=== PATIENT | male | born 1945 | race Caucasian/White ===

== ENCOUNTER 2017-05-19 00:57 | Day surgery (SDC) | payer MEDICARE, BC | END 2017-05-19 16:39 | disposition home or self-care (01) | LOC: WOUND 00:57 | PROC: 0HB8XZZ Excision of Buttock Skin, External Approach (ICD-10-PCS; principal; 2017-05-19) | PROC: 0HB8XZX Excision of Buttock Skin, External Approach, Diagnostic (ICD-10-PCS; principal; 2017-05-19) | DX: Z48.00 Encounter for change or removal of nonsurgical wound dressing (principal); L89.153 Pressure ulcer of sacral region, stage 3; G82.21 Paraplegia, complete; L85.9 Epidermal thickening, unspecified | CPT/HCPCS: 88305; G0463 ==

== ENCOUNTER 2017-05-26 14:09 | Day surgery (SDC) | payer MEDICARE, BC | END 2017-05-26 22:52 | disposition home or self-care (01) | LOC: WOUND 14:09 | DX: L89.313 Pressure ulcer of right buttock, stage 3 (principal); G82.21 Paraplegia, complete; E66.9 Obesity, unspecified | CPT/HCPCS: G0463 ==

== ENCOUNTER 2017-06-02 14:09 | Day surgery (SDC) | payer MEDICARE, BC | END 2017-06-02 22:41 | disposition home or self-care (01) | LOC: WOUND 14:09 | DX: Z48.00 Encounter for change or removal of nonsurgical wound dressing (principal); L89.313 Pressure ulcer of right buttock, stage 3; G82.21 Paraplegia, complete ==

== ENCOUNTER 2017-06-16 00:15 | Day surgery (SDC) | payer MEDICARE, BC | END 2017-06-16 22:37 | disposition home or self-care (01) | LOC: WOUND 00:15 | DX: L89.153 Pressure ulcer of sacral region, stage 3 (principal); L89.313 Pressure ulcer of right buttock, stage 3; G82.21 Paraplegia, complete ==

== ENCOUNTER 2017-06-30 14:04 | Day surgery (SDC) | payer MEDICARE, BC | END 2017-06-30 23:14 | disposition home or self-care (01) | LOC: WOUND 14:04 | DX: Z48.00 Encounter for change or removal of nonsurgical wound dressing (principal); L89.313 Pressure ulcer of right buttock, stage 3; G82.21 Paraplegia, complete | CPT/HCPCS: G0463 ==

== ENCOUNTER 2017-07-14 14:15 | Day surgery (SDC) | payer MEDICARE, BC | END 2017-07-14 23:10 | disposition home or self-care (01) | LOC: WOUND 14:15 | DX: L89.152 Pressure ulcer of sacral region, stage 2 (principal); L89.313 Pressure ulcer of right buttock, stage 3; G82.21 Paraplegia, complete | CPT/HCPCS: G0463 ==

== ENCOUNTER 2017-08-11 12:30 | Day surgery (SDC) | payer MEDICARE, BC | END 2017-08-11 15:00 | disposition home or self-care (01) | LOC: WOUND 12:30 | DX: L89.153 Pressure ulcer of sacral region, stage 3 (principal); L89.214 Pressure ulcer of right hip, stage 4 | CPT/HCPCS: G0463 ==

== ENCOUNTER 2017-09-09 15:14 | Day surgery (SDC) | payer MEDICARE, BC | END 2017-09-09 17:04 | disposition home or self-care (01) | LOC: WOUND 15:14 | DX: L89.313 Pressure ulcer of right buttock, stage 3 (principal); G82.21 Paraplegia, complete; L30.9 Dermatitis, unspecified; Z99.3 Dependence on wheelchair; L84 Corns and callosities | CPT/HCPCS: G0463 ==

== ENCOUNTER 2017-10-05 00:22 | Day surgery (SDC) | payer MEDICARE, BC ==
[2017-10-05] MEDS ORDERED: ATEN50 PO (07:22)
[2017-10-05] MEDS ORDERED: ASPI81CH PO (07:22)
[2017-10-05] MEDS ORDERED: AMLO10 PO (07:22)
[2017-10-05] MEDS ORDERED: CEFA250SU PO (07:23)
[2017-10-05] MEDS ORDERED: ALLO300 PO (07:23)
[2017-10-05] MEDS ORDERED: BUME2 PO (07:23)
[2017-10-05] MEDS ORDERED: POTA10T PO (07:24)
== END 2017-10-05 14:33 | disposition home or self-care (01) ==
LOC: ATC 00:22
DX: L89.312 Pressure ulcer of right buttock, stage 2 (principal); M62.830 Muscle spasm of back
CPT/HCPCS: 99212

== ENCOUNTER 2017-11-07 12:05 | Day surgery (SDC) | payer MEDICARE, BC ==
[~2017-11-07 12:05] MED LIST: ALLO300 PO; AMLO10 PO; ASPI81CH PO; ATEN50 PO; BUME2 PO; CEFA250SU PO; POTA10T PO
== END 2017-11-07 22:44 | disposition home or self-care (01) ==
LOC: WOUND 12:05
DX: L89.313 Pressure ulcer of right buttock, stage 3 (principal); G82.21 Paraplegia, complete
CPT/HCPCS: G0463

== ENCOUNTER 2017-11-14 12:30 | Day surgery (SDC) | payer MEDICARE, BC | END 2017-11-14 22:41 | disposition home or self-care (01) | LOC: WOUND 12:30 | DX: Z48.00 Encounter for change or removal of nonsurgical wound dressing (principal); L89.313 Pressure ulcer of right buttock, stage 3; S31.809S Unspecified open wound of unspecified buttock, sequela; G82.21 Paraplegia, complete | CPT/HCPCS: G0463 ==

== ENCOUNTER 2017-11-21 14:25 | Day surgery (SDC) | payer MEDICARE, BC | END 2017-11-21 15:55 | disposition home or self-care (01) | LOC: WOUND 14:25 | DX: L89.313 Pressure ulcer of right buttock, stage 3 (principal); G82.21 Paraplegia, complete; L30.9 Dermatitis, unspecified; S30.810A Abrasion of lower back and pelvis, initial encounter ==

== ENCOUNTER 2017-11-28 08:16 | Day surgery (SDC) | payer MEDICARE, BC | END 2017-11-28 22:50 | disposition home or self-care (01) | LOC: WOUND 08:16 | DX: L89.313 Pressure ulcer of right buttock, stage 3 (principal); G82.21 Paraplegia, complete; Z68.37 Body mass index [BMI] 37.0-37.9, adult | CPT/HCPCS: G0463 ==

== ENCOUNTER 2017-12-29 00:16 | Day surgery (SDC) | payer MEDICARE, BC | END 2017-12-29 22:44 | disposition home or self-care (01) | LOC: WOUND 00:16 | PROC: 0HB6XZZ Excision of Back Skin, External Approach (ICD-10-PCS; principal; 2017-12-29) | DX: L89.153 Pressure ulcer of sacral region, stage 3 (principal); G82.21 Paraplegia, complete ==

== ENCOUNTER 2018-03-09 13:15 | Day surgery (SDC) | payer MEDICARE, BC | END 2018-03-09 22:45 | disposition home or self-care (01) | LOC: WOUND 13:15 | DX: L89.313 Pressure ulcer of right buttock, stage 3 (principal); S31.809S Unspecified open wound of unspecified buttock, sequela; G82.21 Paraplegia, complete; Z68.37 Body mass index [BMI] 37.0-37.9, adult ==

== ENCOUNTER 2018-04-11 07:12 | Day surgery (SDC) | payer MEDICARE, BC ==
[~2018-04-11] VITALS: Ht 190.5 cm; Wt 136.1 kg
--- NOTE | 2018-04-11 08:02 | NUR ---
PT INTO SDS VIA WHEELCHAIR. PT IS PARAPLEGIC-UTILIZED CEILING LIFT TO TRANSFER PT FROM WHEELCHAIR TO RNEY WITHOUT DIFFICULTY. Patient states colon prep results clear. History, Chart, Medications and Allergies reviewed before start of procedure.Lungs clear T/O to Auscultation. Patient confirms NPO status and agrees with scheduled surgery. Patient States Post-Procedure ride home has been arranged.
--- NOTE | 2018-04-11 08:46 | NUR ---
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
--- NOTE | 2018-04-11 09:02 | NUR ---
PT RETURNED TO SPOT 9 IN DAY SURGERY- PREP NO ADEQUATE. PT TO RECEIVE ENEMAS PER ORDER AND WILL ATTEMPT PROCEDURE AGAIN LATER THIS AM.
--- NOTE | 2018-04-11 10:30 | NUR ---
PT COCCYX AND BUTTOCKS NOTED TO BE EXCORIATED. OLD SACRAL WOUND NOTED-PT CHRISTOPHER STATES THAT PT GOES TO THE WOUND CARE CLINIC ONCE A MONTH. PT GIVEN 1500 CC TAP WATER ENEMA, BUT HE WAS UNABLE TO RETAIN ANY OF THE FLUID. DR. MONDRAGON NOTIFIED-MAXX BRENNAN RECTAL TUBE PLACED AND ADDITIONAL 2000 CC TAP WATER IRRIGATED. THE STOOL IN THE FECAL COLLECTION BAG IS CLEAR YELLOW. PARTIAL BATH AND COMPLETE LINEN CHANGE COMPLETED X 2. CALAZIME APPLIED TO EXCORIATED SKIN TO DIMPLE AREA.
--- NOTE | 2018-04-11 11:58 | NUR ---
04/11/18 1158 Ness Peñaloza History, Chart, Medications and Allergies reviewed before start of procedure. 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 SECOND ATTEMPT TODAY AFTER FIRST PROCEDURE ABORTED DUE TO INABILITY TO VISUALIZE COLON R/T POOR PREP. EMEMAS ADMINISTERED UNTIL STOOL CLEAR BY PREOP RN
--- NOTE | 2018-04-11 13:05 | NUR ---
Discharge instructions reviewed with patient. Patient verbalizes understanding. Copy given to patient to take home. PATEINT TO FOLLOW UP WITH DR. MONDRAGON R/T OPTIONS AVAILABLE FOR REPEAT SCOPE PT NOT CLEAR FOR PROCEDURE. PT OUT IN HOME WHEELCHAIR WITH
== END 2018-04-11 22:37 | disposition home or self-care (01) ==
LOC: ORSCMMR 07:12 → ORD 08:45 → ORSCMMR 08:45
PROVIDERS: Internal Medicine Gastroenterology
PROC: 0DJD8ZZ Inspection of Lower Intestinal Tract, Via Natural or Artificial Opening Endoscopic (ICD-10-PCS; principal; 2018-04-11 08:45)
DX: Z12.11 Encounter for screening for malignant neoplasm of colon (principal); Z86.010 Personal history of colon polyps; G82.20 Paraplegia, unspecified; L03.317 Cellulitis of buttock; I10 Essential (primary) hypertension; E66.01 Morbid (severe) obesity due to excess calories; Z68.39 Body mass index [BMI] 39.0-39.9, adult; Z79.899 Other long term (current) drug therapy
CPT/HCPCS: J2250; J7120

== ENCOUNTER 2018-05-26 08:07 | Day surgery (SDC) | payer MEDICARE, BC | END 2018-05-26 23:17 | disposition home or self-care (01) | LOC: WOUND 08:07 | DX: L89.153 Pressure ulcer of sacral region, stage 3 (principal); L89.322 Pressure ulcer of left buttock, stage 2; L89.312 Pressure ulcer of right buttock, stage 2; L89.892 Pressure ulcer of other site, stage 2; I11.0 Hypertensive heart disease with heart failure; I50.9 Heart failure, unspecified; G82.21 Paraplegia, complete; G47.30 Sleep apnea, unspecified; M10.9 Gout, unspecified | CPT/HCPCS: G0463 ==

== ENCOUNTER 2018-06-08 10:48 | Day surgery (SDC) | payer MEDICARE, BC | END 2018-06-08 23:11 | disposition home or self-care (01) | LOC: WOUND 10:48 | DX: L89.312 Pressure ulcer of right buttock, stage 2 (principal); L89.322 Pressure ulcer of left buttock, stage 2; L89.153 Pressure ulcer of sacral region, stage 3; G82.21 Paraplegia, complete; G47.30 Sleep apnea, unspecified; I11.0 Hypertensive heart disease with heart failure; I50.9 Heart failure, unspecified; I73.9 Peripheral vascular disease, unspecified; M10.9 Gout, unspecified | CPT/HCPCS: G0463 ==

== ENCOUNTER 2018-07-06 00:16 | Day surgery (SDC) | payer MEDICARE, BC | END 2018-07-06 22:42 | disposition home or self-care (01) | LOC: WOUND 00:16 | DX: L89.153 Pressure ulcer of sacral region, stage 3 (principal); L89.312 Pressure ulcer of right buttock, stage 2; L89.322 Pressure ulcer of left buttock, stage 2; G82.21 Paraplegia, complete; I11.0 Hypertensive heart disease with heart failure; I50.9 Heart failure, unspecified; G47.30 Sleep apnea, unspecified | CPT/HCPCS: G0463 ==

== ENCOUNTER 2018-08-10 11:00 | Day surgery (SDC) | payer MEDICARE, BC | END 2018-08-10 23:21 | disposition home or self-care (01) | LOC: WOUND 11:00 | DX: L89.153 Pressure ulcer of sacral region, stage 3 (principal); L89.312 Pressure ulcer of right buttock, stage 2; L89.322 Pressure ulcer of left buttock, stage 2; G82.21 Paraplegia, complete; I11.0 Hypertensive heart disease with heart failure; I50.9 Heart failure, unspecified; M10.9 Gout, unspecified; M86.9 Osteomyelitis, unspecified; G82.20 Paraplegia, unspecified ==

== ENCOUNTER 2018-09-14 00:22 | Day surgery (SDC) | payer MEDICARE, BC | END 2018-09-14 22:49 | disposition home or self-care (01) | LOC: WOUND 00:22 | DX: L89.153 Pressure ulcer of sacral region, stage 3 (principal); L89.312 Pressure ulcer of right buttock, stage 2; L89.322 Pressure ulcer of left buttock, stage 2; L89.892 Pressure ulcer of other site, stage 2; I11.0 Hypertensive heart disease with heart failure; I50.9 Heart failure, unspecified; I73.9 Peripheral vascular disease, unspecified; G47.30 Sleep apnea, unspecified; G82.21 Paraplegia, complete | CPT/HCPCS: G0463 ==

== ENCOUNTER 2018-10-17 13:43 | Day surgery (SDC) | payer MEDICARE, BC | END 2018-10-17 22:47 | disposition home or self-care (01) | LOC: WOUND 13:43 | DX: L89.312 Pressure ulcer of right buttock, stage 2 (principal); L89.322 Pressure ulcer of left buttock, stage 2; G82.21 Paraplegia, complete | CPT/HCPCS: G0463 ==

== ENCOUNTER 2018-11-20 14:00 | Day surgery (SDC) | payer MEDICARE, BC | END 2018-11-20 23:06 | disposition home or self-care (01) | LOC: WOUND 14:00 | DX: L89.312 Pressure ulcer of right buttock, stage 2 (principal); L89.322 Pressure ulcer of left buttock, stage 2; G82.21 Paraplegia, complete; I11.0 Hypertensive heart disease with heart failure; I50.9 Heart failure, unspecified | CPT/HCPCS: 87070; 87075; 87205; G0463 ==

== ENCOUNTER 2018-11-30 00:16 | Day surgery (SDC) | payer MEDICARE, BC | END 2018-11-30 22:54 | disposition home or self-care (01) | LOC: WOUND 00:16 | DX: L89.313 Pressure ulcer of right buttock, stage 3 (principal); L89.323 Pressure ulcer of left buttock, stage 3; G82.21 Paraplegia, complete; Z99.3 Dependence on wheelchair | CPT/HCPCS: G0463 ==

== ENCOUNTER 2019-01-16 08:30 | Day surgery (SDC) | payer MEDICARE, BC | END 2019-01-16 22:41 | disposition home or self-care (01) | LOC: WOUND 08:30 | DX: L89.313 Pressure ulcer of right buttock, stage 3 (principal); L89.323 Pressure ulcer of left buttock, stage 3; G82.21 Paraplegia, complete; E66.9 Obesity, unspecified; M10.9 Gout, unspecified; I10 Essential (primary) hypertension; L03.90 Cellulitis, unspecified; Z88.1 Allergy status to other antibiotic agents; Z86.010 Personal history of colon polyps; Z68.38 Body mass index [BMI] 38.0-38.9, adult; Z79.82 Long term (current) use of aspirin; Z79.899 Other long term (current) drug therapy; R68.83 Chills (without fever) | CPT/HCPCS: 36415; 80053; 85025; G0463 ==

== ENCOUNTER 2019-03-14 00:36 | Day surgery (SDC) | payer MEDICARE, BC | END 2019-03-14 22:45 | disposition home or self-care (01) | LOC: WOUND 00:36 | DX: L89.313 Pressure ulcer of right buttock, stage 3 (principal); L89.323 Pressure ulcer of left buttock, stage 3; G82.21 Paraplegia, complete | CPT/HCPCS: G0463 ==

== ENCOUNTER → 2019-04-17 | Day surgery (SDC) | payer MEDICARE, BC | LOC: WOUND 11:11 | DX: L89.313 Pressure ulcer of right buttock, stage 3 (principal); L89.323 Pressure ulcer of left buttock, stage 3; G82.21 Paraplegia, complete | CPT/HCPCS: G0463 ==

== ENCOUNTER 2019-05-15 00:19 | Day surgery (SDC) | payer MEDICARE, BC | END 2019-05-15 22:48 | disposition home or self-care (01) | LOC: WOUND 00:19 | DX: L89.313 Pressure ulcer of right buttock, stage 3 (principal); L89.323 Pressure ulcer of left buttock, stage 3; G82.21 Paraplegia, complete; I10 Essential (primary) hypertension; I50.9 Heart failure, unspecified ==

== ENCOUNTER 2019-06-18 00:11 | Day surgery (SDC) | payer MEDICARE, BC | END 2019-06-18 22:38 | disposition home or self-care (01) | LOC: WOUND 00:11 | DX: L89.313 Pressure ulcer of right buttock, stage 3 (principal); L89.323 Pressure ulcer of left buttock, stage 3; G82.21 Paraplegia, complete ==

== ENCOUNTER 2019-07-12 00:13 | Day surgery (SDC) | payer MEDICARE, BC | END 2019-07-12 23:48 | disposition home or self-care (01) | LOC: WOUND 00:13 | DX: L89.313 Pressure ulcer of right buttock, stage 3 (principal); L89.323 Pressure ulcer of left buttock, stage 3; G82.21 Paraplegia, complete | CPT/HCPCS: G0463 ==

== ENCOUNTER 2019-12-20 00:43 | Day surgery (SDC) | payer MEDICARE, BC | END 2019-12-20 12:00 | disposition home or self-care (01) | LOC: WOUND 00:43 | DX: L89.313 Pressure ulcer of right buttock, stage 3 (principal); L89.323 Pressure ulcer of left buttock, stage 3; G82.21 Paraplegia, complete | CPT/HCPCS: G0463 ==

== ENCOUNTER 2020-03-19 00:45 | Day surgery (SDC) | payer MEDICARE, BC | END 2020-03-19 23:08 | disposition home or self-care (01) | LOC: WOUND 00:45 | DX: I96 Gangrene, not elsewhere classified (principal); L89.313 Pressure ulcer of right buttock, stage 3; L89.223 Pressure ulcer of left hip, stage 3; L89.322 Pressure ulcer of left buttock, stage 2; S31.31XD Laceration without foreign body of scrotum and testes, subsequent encounter; G47.30 Sleep apnea, unspecified; I11.0 Hypertensive heart disease with heart failure; I50.9 Heart failure, unspecified; M10.9 Gout, unspecified; M86.9 Osteomyelitis, unspecified; G82.21 Paraplegia, complete; Z79.82 Long term (current) use of aspirin; Z79.899 Other long term (current) drug therapy; Z88.1 Allergy status to other antibiotic agents; X58.XXXD Exposure to other specified factors, subsequent encounter | CPT/HCPCS: G0463 ==

== ENCOUNTER 2020-07-11 00:54 | Day surgery (SDC) | payer MEDICARE, BC | END 2020-07-11 23:05 | disposition home or self-care (01) | LOC: WOUND 00:54 | DX: L89.313 Pressure ulcer of right buttock, stage 3 (principal); L89.323 Pressure ulcer of left buttock, stage 3; G82.21 Paraplegia, complete; Z68.38 Body mass index [BMI] 38.0-38.9, adult; N39.46 Mixed incontinence; L24.89 Irritant contact dermatitis due to other agents; Z99.3 Dependence on wheelchair | CPT/HCPCS: A9270; G0463 ==

== ENCOUNTER 2020-07-18 00:46 | Day surgery (SDC) | payer MEDICARE, BC | END 2020-07-18 22:38 | disposition home or self-care (01) | LOC: WOUND 00:46 | DX: L89.313 Pressure ulcer of right buttock, stage 3 (principal); L89.323 Pressure ulcer of left buttock, stage 3; G82.21 Paraplegia, complete; Z68.38 Body mass index [BMI] 38.0-38.9, adult; N39.46 Mixed incontinence; L24.89 Irritant contact dermatitis due to other agents; Z99.3 Dependence on wheelchair | CPT/HCPCS: G0463 ==

== ENCOUNTER 2020-07-25 00:59 | Day surgery (SDC) | payer MEDICARE, BC | END 2020-07-25 23:09 | disposition home or self-care (01) | LOC: WOUND 00:59 | DX: L89.323 Pressure ulcer of left buttock, stage 3 (principal); L89.313 Pressure ulcer of right buttock, stage 3; L89.153 Pressure ulcer of sacral region, stage 3; G82.21 Paraplegia, complete; N39.46 Mixed incontinence; L24.89 Irritant contact dermatitis due to other agents; Z68.38 Body mass index [BMI] 38.0-38.9, adult; Z99.3 Dependence on wheelchair | CPT/HCPCS: G0463 ==

== ENCOUNTER 2020-08-08 04:21 | Day surgery (SDC) | payer MEDICARE, BC | END 2020-08-09 00:32 | disposition home or self-care (01) | LOC: WOUND 04:21 | DX: L89.313 Pressure ulcer of right buttock, stage 3 (principal); L89.323 Pressure ulcer of left buttock, stage 3; G82.21 Paraplegia, complete; N39.46 Mixed incontinence; L24.89 Irritant contact dermatitis due to other agents; Z68.38 Body mass index [BMI] 38.0-38.9, adult; Z99.3 Dependence on wheelchair | CPT/HCPCS: G0463 ==

== ENCOUNTER 2020-09-04 01:40 | Day surgery (SDC) | payer MEDICARE, BC | END 2020-09-04 23:36 | disposition home or self-care (01) | LOC: WOUND 01:40 | DX: L89.313 Pressure ulcer of right buttock, stage 3 (principal); L89.323 Pressure ulcer of left buttock, stage 3; S31.31XD Laceration without foreign body of scrotum and testes, subsequent encounter; G82.21 Paraplegia, complete; N39.46 Mixed incontinence; L24.89 Irritant contact dermatitis due to other agents; Z99.3 Dependence on wheelchair; Z88.1 Allergy status to other antibiotic agents | CPT/HCPCS: G0463 ==

== ENCOUNTER 2020-10-02 02:07 | Day surgery (SDC) | payer MEDICARE, BC | END 2020-10-02 23:00 | disposition home or self-care (01) | LOC: WOUND 02:07 | DX: L89.313 Pressure ulcer of right buttock, stage 3 (principal); L89.323 Pressure ulcer of left buttock, stage 3; L89.312 Pressure ulcer of right buttock, stage 2; L89.322 Pressure ulcer of left buttock, stage 2; G82.21 Paraplegia, complete; N39.46 Mixed incontinence; L24.89 Irritant contact dermatitis due to other agents; Z68.38 Body mass index [BMI] 38.0-38.9, adult; Z99.3 Dependence on wheelchair | CPT/HCPCS: G0463 ==

== ENCOUNTER 2020-11-06 01:49 | Day surgery (SDC) | payer MEDICARE, BC | END 2020-11-06 23:03 | disposition home or self-care (01) | LOC: WOUND 01:49 | DX: L89.313 Pressure ulcer of right buttock, stage 3 (principal); L89.323 Pressure ulcer of left buttock, stage 3; G82.21 Paraplegia, complete; N39.46 Mixed incontinence; L24.89 Irritant contact dermatitis due to other agents; Z99.3 Dependence on wheelchair; Z68.38 Body mass index [BMI] 38.0-38.9, adult ==

== ENCOUNTER → 2020-12-01 | Outpatient (CLI) | payer MEDICARE, BC | END | disposition home or self-care (01) | LOC: LAB SHORT 18:06 | DX: R82.998 Other abnormal findings in urine (principal) | CPT/HCPCS: 87077; 87086; 87186 ==

== ENCOUNTER 2020-12-02 01:10 | Day surgery (SDC) | payer MEDICARE, BC | END 2020-12-02 23:07 | disposition home or self-care (01) | LOC: WOUND 01:10 | DX: L89.323 Pressure ulcer of left buttock, stage 3 (principal); L89.313 Pressure ulcer of right buttock, stage 3; S31.31XA Laceration without foreign body of scrotum and testes, initial encounter; X58.XXXA Exposure to other specified factors, initial encounter; G82.21 Paraplegia, complete; Z68.38 Body mass index [BMI] 38.0-38.9, adult; N39.46 Mixed incontinence; L24.89 Irritant contact dermatitis due to other agents; Z99.3 Dependence on wheelchair; Z88.1 Allergy status to other antibiotic agents | CPT/HCPCS: G0463 ==

== ENCOUNTER 2021-01-28 02:02 | Day surgery (SDC) | payer MEDICARE, BC | END 2021-01-28 23:09 | disposition home or self-care (01) | LOC: WOUND 02:02 | DX: L89.323 Pressure ulcer of left buttock, stage 3 (principal); L89.312 Pressure ulcer of right buttock, stage 2; L89.890 Pressure ulcer of other site, unstageable; G82.21 Paraplegia, complete; N39.46 Mixed incontinence; L24.89 Irritant contact dermatitis due to other agents; Z99.3 Dependence on wheelchair; Z68.38 Body mass index [BMI] 38.0-38.9, adult | CPT/HCPCS: G0463 ==

== ENCOUNTER 2021-03-02 00:57 | Day surgery (SDC) | payer MEDICARE, BC | END 2021-03-02 23:18 | disposition home or self-care (01) | LOC: WOUND 00:57 | DX: L89.313 Pressure ulcer of right buttock, stage 3 (principal); L89.323 Pressure ulcer of left buttock, stage 3; G82.21 Paraplegia, complete; Z68.38 Body mass index [BMI] 38.0-38.9, adult; N39.46 Mixed incontinence; L24.89 Irritant contact dermatitis due to other agents; Z99.3 Dependence on wheelchair | CPT/HCPCS: A9270; G0463 ==

== ENCOUNTER 2021-04-17 03:01 | Day surgery (SDC) | payer MEDICARE, BC | END 2021-04-17 23:01 | disposition home or self-care (01) | LOC: WOUND 03:01 | DX: L89.313 Pressure ulcer of right buttock, stage 3 (principal); L89.323 Pressure ulcer of left buttock, stage 3; G82.21 Paraplegia, complete; N39.46 Mixed incontinence; L24.89 Irritant contact dermatitis due to other agents; Z99.3 Dependence on wheelchair; Z68.38 Body mass index [BMI] 38.0-38.9, adult | CPT/HCPCS: A9270; G0463 ==

== ENCOUNTER 2021-05-15 02:37 | Day surgery (SDC) | payer MEDICARE, BC | END 2021-05-15 23:16 | disposition home or self-care (01) | LOC: WOUND 02:37 | DX: L89.313 Pressure ulcer of right buttock, stage 3 (principal); L89.323 Pressure ulcer of left buttock, stage 3; G82.21 Paraplegia, complete; R32 Unspecified urinary incontinence; L24.89 Irritant contact dermatitis due to other agents; Z99.3 Dependence on wheelchair | CPT/HCPCS: A9270; G0463 ==

== ENCOUNTER 2021-06-12 03:00 | Day surgery (SDC) | payer MEDICARE, BC | END 2021-06-12 23:10 | disposition home or self-care (01) | LOC: WOUND 03:00 | DX: L89.323 Pressure ulcer of left buttock, stage 3 (principal); L89.314 Pressure ulcer of right buttock, stage 4; G89.21 Chronic pain due to trauma; Z68.38 Body mass index [BMI] 38.0-38.9, adult; N39.46 Mixed incontinence; L24.89 Irritant contact dermatitis due to other agents; Z99.3 Dependence on wheelchair | CPT/HCPCS: G0463 ==

== ENCOUNTER → 2021-06-19 | Outpatient (CLI) | payer MEDICARE, BC ==
[2021-06-19 14:34] LABS: Source, Urine Voided
[2021-06-19 16:07] LABS: Appearance, Urine Hazy (Clear); Bilirubin, Urine Neg (Neg); Blood, Urine 1+ (Neg); Color, Urine Yellow (P-Yellow); Glucose Qualitative, Urine Neg (Neg); Ketones, Urine Neg (Neg); Leukocyte Esterase, Urine 3+ (Neg); Nitrite, Urine Pos (Neg); Protein, Urine Neg (Neg); Urobilinogen, Urine NORM (Normal); pH, Urine 6.5 (5.0-8.0)
[2021-06-19 17:10] LABS: White Blood Cells, Urine 25-50 /hpf (0-5)
[2021-06-19 17:11] LABS: Bacteria Many /hpf; Mucus Light (0-Heavy); Squamous Epithelial Cells Rare /hpf (Few)
== END | disposition home or self-care (01) ==
LOC: LAB 14:33 → LAB SHORT 14:33 → LAB FUT 06-18 12:05
PROVIDERS: Urology
DX: N39.0 Urinary tract infection, site not specified (principal)
CPT/HCPCS: 81001; 87077; 87086; 87186

== ENCOUNTER 2021-07-10 01:53 | Day surgery (SDC) | payer MEDICARE, BC | END 2021-07-10 23:00 | disposition home or self-care (01) | LOC: WOUND 01:53 | DX: L89.314 Pressure ulcer of right buttock, stage 4 (principal); L89.323 Pressure ulcer of left buttock, stage 3; S31.809S Unspecified open wound of unspecified buttock, sequela; X58.XXXS Exposure to other specified factors, sequela; G82.21 Paraplegia, complete; N39.46 Mixed incontinence; L24.89 Irritant contact dermatitis due to other agents; Z99.3 Dependence on wheelchair; Z68.38 Body mass index [BMI] 38.0-38.9, adult | CPT/HCPCS: G0463 ==

== ENCOUNTER 2021-08-07 08:00 | Day surgery (SDC) | payer MEDICARE, BC | END 2021-08-07 23:59 | disposition home or self-care (01) | LOC: WOUND 08:00 | DX: L89.314 Pressure ulcer of right buttock, stage 4 (principal); L89.323 Pressure ulcer of left buttock, stage 3; S31.809S Unspecified open wound of unspecified buttock, sequela; X58.XXXS Exposure to other specified factors, sequela; G82.21 Paraplegia, complete; Z68.38 Body mass index [BMI] 38.0-38.9, adult; N39.46 Mixed incontinence; L24.89 Irritant contact dermatitis due to other agents; Z99.3 Dependence on wheelchair | CPT/HCPCS: G0463 ==

== ENCOUNTER 2021-09-09 03:41 | Day surgery (SDC) | payer MEDICARE, BC | END 2021-09-09 23:56 | LOC: WOUND 03:41 | DX: L89.314 Pressure ulcer of right buttock, stage 4 (principal); L89.323 Pressure ulcer of left buttock, stage 3; L89.893 Pressure ulcer of other site, stage 3; S31.809S Unspecified open wound of unspecified buttock, sequela; X58.XXXS Exposure to other specified factors, sequela; G82.21 Paraplegia, complete; N39.46 Mixed incontinence; L24.89 Irritant contact dermatitis due to other agents; Z99.3 Dependence on wheelchair; Z68.38 Body mass index [BMI] 38.0-38.9, adult | CPT/HCPCS: G0463 ==

== ENCOUNTER 2021-10-21 02:03 | Day surgery (SDC) | payer MEDICARE, BC | END 2021-10-21 23:25 | disposition home or self-care (01) | LOC: WOUND 02:03 | DX: L89.154 Pressure ulcer of sacral region, stage 4 (principal); L89.153 Pressure ulcer of sacral region, stage 3; L89.893 Pressure ulcer of other site, stage 3; G82.21 Paraplegia, complete; N39.46 Mixed incontinence; L24.89 Irritant contact dermatitis due to other agents; Z99.3 Dependence on wheelchair | CPT/HCPCS: A9270; G0463 ==

== ENCOUNTER 2022-01-04 02:14 | Day surgery (SDC) | payer MEDICARE, BC | END 2022-01-04 22:53 | disposition home or self-care (01) | LOC: WOUND 02:14 | DX: L89.314 Pressure ulcer of right buttock, stage 4 (principal); L89.323 Pressure ulcer of left buttock, stage 3; L89.893 Pressure ulcer of other site, stage 3; S31.809S Unspecified open wound of unspecified buttock, sequela; G82.21 Paraplegia, complete; N39.46 Mixed incontinence; L24.89 Irritant contact dermatitis due to other agents; N39.0 Urinary tract infection, site not specified; Z68.38 Body mass index [BMI] 38.0-38.9, adult; Z99.3 Dependence on wheelchair | CPT/HCPCS: G0463 ==

== ENCOUNTER 2022-02-08 01:45 | Day surgery (SDC) | payer MEDICARE, BC | END 2022-02-08 23:02 | disposition home or self-care (01) | LOC: WOUND 01:45 | DX: L89.314 Pressure ulcer of right buttock, stage 4 (principal); L89.323 Pressure ulcer of left buttock, stage 3; L89.893 Pressure ulcer of other site, stage 3; S31.809S Unspecified open wound of unspecified buttock, sequela; L24.89 Irritant contact dermatitis due to other agents; G82.21 Paraplegia, complete; N39.46 Mixed incontinence; Z68.38 Body mass index [BMI] 38.0-38.9, adult; Z99.3 Dependence on wheelchair | CPT/HCPCS: A9270; G0463 ==

== ENCOUNTER 2022-03-10 04:09 | Day surgery (SDC) | payer MEDICARE, BC | END 2022-03-10 23:05 | disposition home or self-care (01) | LOC: WOUND 04:09 | DX: L89.314 Pressure ulcer of right buttock, stage 4 (principal); L89.323 Pressure ulcer of left buttock, stage 3; S31.809A Unspecified open wound of unspecified buttock, initial encounter; L89.893 Pressure ulcer of other site, stage 3; G82.21 Paraplegia, complete; Z68.38 Body mass index [BMI] 38.0-38.9, adult; N39.46 Mixed incontinence; L24.89 Irritant contact dermatitis due to other agents; Z99.3 Dependence on wheelchair | CPT/HCPCS: G0463 ==

== ENCOUNTER 2022-04-07 00:40 | Day surgery (SDC) | payer MEDICARE, BC | END 2022-04-07 22:51 | disposition home or self-care (01) | LOC: WOUND 00:40 | DX: L89.314 Pressure ulcer of right buttock, stage 4 (principal); L89.323 Pressure ulcer of left buttock, stage 3; G82.21 Paraplegia, complete; N39.46 Mixed incontinence; L24.89 Irritant contact dermatitis due to other agents; Z99.3 Dependence on wheelchair ==

== ENCOUNTER → 2022-04-15 | Outpatient (CLI) | payer MEDICARE, BC ==
[2022-04-15 15:36] LABS: Appearance, Urine Hazy (Clear); Bilirubin, Urine Neg (Neg); Blood, Urine 2+ (Neg); Color, Urine Yellow (P-Yellow); Glucose Qualitative, Urine Neg (Neg); Ketones, Urine Neg (Neg); Leukocyte Esterase, Urine 3+ (Neg); Nitrite, Urine Pos (Neg); Protein, Urine 2+ (Neg); Specific Gravity, Urine 1.015 (1.003-1.022); Urobilinogen, Urine NORM (Normal); pH, Urine 6.5 (5.0-8.0)
[2022-04-15 15:51] LABS: White Blood Cells, Urine TNTC /hpf (0-5)
[2022-04-15 15:52] LABS: Bacteria Many /hpf; Squamous Epithelial Cells Not Seen /hpf (Few)
== END | disposition home or self-care (01) ==
LOC: LAB SHORT 11:55 → LAB 11:55 → LAB FUT 04-09 07:35
PROVIDERS: Urology
DX: N39.0 Urinary tract infection, site not specified (principal)
CPT/HCPCS: 81001; 87077; 87086; 87186

== ENCOUNTER 2022-05-12 01:56 | Day surgery (SDC) | payer MEDICARE, BC | END 2022-05-12 22:35 | disposition home or self-care (01) | LOC: WOUND 01:56 | DX: L89.314 Pressure ulcer of right buttock, stage 4 (principal); L89.323 Pressure ulcer of left buttock, stage 3; L89.893 Pressure ulcer of other site, stage 3; S31.809S Unspecified open wound of unspecified buttock, sequela; G82.21 Paraplegia, complete; N39.46 Mixed incontinence; L24.89 Irritant contact dermatitis due to other agents; Z99.3 Dependence on wheelchair; Z68.38 Body mass index [BMI] 38.0-38.9, adult | CPT/HCPCS: G0463 ==

== ENCOUNTER 2022-06-09 02:45 | Day surgery (SDC) | payer MEDICARE, BC | END 2022-06-09 22:41 | disposition home or self-care (01) | LOC: WOUND 02:45 | DX: L89.314 Pressure ulcer of right buttock, stage 4 (principal); N50.89 Other specified disorders of the male genital organs; L89.893 Pressure ulcer of other site, stage 3; L89.323 Pressure ulcer of left buttock, stage 3; S31.809S Unspecified open wound of unspecified buttock, sequela; G82.21 Paraplegia, complete; N39.46 Mixed incontinence; L24.89 Irritant contact dermatitis due to other agents; Z99.3 Dependence on wheelchair | CPT/HCPCS: G0463 ==

== ENCOUNTER 2022-07-07 05:35 | Day surgery (SDC) | payer MEDICARE, BC | END 2022-07-07 22:57 | disposition home or self-care (01) | LOC: WOUND 05:35 | DX: L89.314 Pressure ulcer of right buttock, stage 4 (principal); L89.323 Pressure ulcer of left buttock, stage 3; S31.809S Unspecified open wound of unspecified buttock, sequela; X58.XXXS Exposure to other specified factors, sequela; G82.21 Paraplegia, complete; Z68.38 Body mass index [BMI] 38.0-38.9, adult; N39.46 Mixed incontinence; L24.89 Irritant contact dermatitis due to other agents; Z99.3 Dependence on wheelchair | CPT/HCPCS: G0463 ==

== ENCOUNTER 2022-09-30 02:40 | Day surgery (SDC) | payer MEDICARE, BC | END 2022-09-30 23:35 | disposition home or self-care (01) | LOC: WOUND 02:40 | DX: L89.314 Pressure ulcer of right buttock, stage 4 (principal); L89.893 Pressure ulcer of other site, stage 3; L89.323 Pressure ulcer of left buttock, stage 3; S31.809S Unspecified open wound of unspecified buttock, sequela; X58.XXXS Exposure to other specified factors, sequela; G82.21 Paraplegia, complete; N39.46 Mixed incontinence; L24.89 Irritant contact dermatitis due to other agents; Z68.38 Body mass index [BMI] 38.0-38.9, adult; Z99.3 Dependence on wheelchair | CPT/HCPCS: G0463 ==

== ENCOUNTER 2022-10-28 03:42 | Day surgery (SDC) | payer MEDICARE, BC | END 2022-10-28 22:40 | disposition home or self-care (01) | LOC: WOUND 03:42 | DX: L89.314 Pressure ulcer of right buttock, stage 4 (principal); L89.893 Pressure ulcer of other site, stage 3; L89.323 Pressure ulcer of left buttock, stage 3; S31.809S Unspecified open wound of unspecified buttock, sequela; X58.XXXS Exposure to other specified factors, sequela; G82.21 Paraplegia, complete; N39.46 Mixed incontinence; L24.89 Irritant contact dermatitis due to other agents; Z99.3 Dependence on wheelchair; Z68.38 Body mass index [BMI] 38.0-38.9, adult; N39.0 Urinary tract infection, site not specified | CPT/HCPCS: 81001; 87077; 87086; 87186; A9270; G0463 ==

== ENCOUNTER → 2022-10-28 | Outpatient (CLI) | payer MEDICARE, BC ==
[2022-10-28 17:28] LABS: Appearance, Urine Cloudy (Clear); Bilirubin, Urine Neg (Neg); Blood, Urine 2+ (Neg); Color, Urine Yellow (P-Yellow); Glucose Qualitative, Urine Neg (Neg); Ketones, Urine Neg (Neg); Leukocyte Esterase, Urine 3+ (Neg); Nitrite, Urine Pos (Neg); Protein, Urine 1+ (Neg); Specific Gravity, Urine 1.015 (1.003-1.022); Urobilinogen, Urine NORM (Normal)
[2022-10-28 17:36] LABS: Bacteria Many /hpf; Squamous Epithelial Cells Not Seen /hpf (Few); White Blood Cells, Urine TNTC /hpf (0-5)
== END | disposition home or self-care (01) ==
LOC: LAB SHORT 16:27 → LAB 16:27 → LAB FUT 10-28 12:45
PROVIDERS: Physician Assistant
DX: N39.0 Urinary tract infection, site not specified (principal)
CPT/HCPCS: 81001; 87077; 87086; 87186

== ENCOUNTER 2022-12-02 08:00 | Day surgery (SDC) | payer MEDICARE, BC | END 2022-12-02 23:59 | disposition home or self-care (01) | LOC: WOUND 08:00 | DX: L89.314 Pressure ulcer of right buttock, stage 4 (principal); L89.893 Pressure ulcer of other site, stage 3; L89.323 Pressure ulcer of left buttock, stage 3; S31.809S Unspecified open wound of unspecified buttock, sequela; G82.21 Paraplegia, complete; N39.46 Mixed incontinence; L24.89 Irritant contact dermatitis due to other agents; Z99.3 Dependence on wheelchair | CPT/HCPCS: G0463 ==

== ENCOUNTER 2023-01-06 05:31 | Day surgery (SDC) | payer MEDICARE, BC | END 2023-01-06 22:48 | disposition home or self-care (01) | LOC: WOUND 05:31 | DX: L89.314 Pressure ulcer of right buttock, stage 4 (principal); L89.323 Pressure ulcer of left buttock, stage 3; L89.893 Pressure ulcer of other site, stage 3; S31.809S Unspecified open wound of unspecified buttock, sequela; X58.XXXS Exposure to other specified factors, sequela; G82.21 Paraplegia, complete; Z68.38 Body mass index [BMI] 38.0-38.9, adult; N39.46 Mixed incontinence; L24.89 Irritant contact dermatitis due to other agents; Z99.3 Dependence on wheelchair | CPT/HCPCS: G0463 ==

== ENCOUNTER 2023-02-03 01:25 | Day surgery (SDC) | payer MEDICARE, BC | END 2023-02-03 22:52 | disposition home or self-care (01) | LOC: WOUND 01:25 | DX: L89.314 Pressure ulcer of right buttock, stage 4 (principal); L89.323 Pressure ulcer of left buttock, stage 3; L89.893 Pressure ulcer of other site, stage 3; G82.21 Paraplegia, complete; S31.809S Unspecified open wound of unspecified buttock, sequela; X58.XXXS Exposure to other specified factors, sequela; Z68.38 Body mass index [BMI] 38.0-38.9, adult; N39.46 Mixed incontinence; L24.89 Irritant contact dermatitis due to other agents; Z99.3 Dependence on wheelchair | CPT/HCPCS: G0463 ==

== ENCOUNTER 2023-03-24 04:57 | Day surgery (SDC) | payer MEDICARE, BC | END 2023-03-24 22:58 | disposition home or self-care (01) | LOC: WOUND 04:57 | DX: L89.314 Pressure ulcer of right buttock, stage 4 (principal); L89.323 Pressure ulcer of left buttock, stage 3; L89.312 Pressure ulcer of right buttock, stage 2; L89.893 Pressure ulcer of other site, stage 3; G82.21 Paraplegia, complete; N39.46 Mixed incontinence; L24.89 Irritant contact dermatitis due to other agents; Z99.3 Dependence on wheelchair; S31.809S Unspecified open wound of unspecified buttock, sequela; S31.30XS Unspecified open wound of scrotum and testes, sequela; S71.102S Unspecified open wound, left thigh, sequela; X58.XXXS Exposure to other specified factors, sequela | CPT/HCPCS: G0463 ==

== ENCOUNTER → 2023-04-07 | Outpatient (CLI) | payer MEDICARE, BC ==
[2023-04-07 17:48] LABS: Source, Urine Straight Cath
[2023-04-07 18:41] LABS: Appearance, Urine Clear (Clear); Bilirubin, Urine Neg (Neg); Blood, Urine Neg (Neg); Color, Urine Yellow (P-Yellow); Glucose Qualitative, Urine Neg (Neg); Ketones, Urine Neg (Neg); Leukocyte Esterase, Urine 3+ (Neg); Nitrite, Urine Pos (Neg); Protein, Urine Neg (Neg); Urobilinogen, Urine NORM (Normal)
[2023-04-07 18:51] LABS: Bacteria Many /hpf; Red Blood Cells, Urine 0-2 /hpf (0-2); Squamous Epithelial Cells Rare /hpf (Few); White Blood Cells, Urine 25-50 /hpf (0-5)
[2023-04-07 18:52] LABS: Amorphous Light (0-Heavy)
== END ==
LOC: LAB SHORT 17:46 → LAB 17:46 → LAB FUT 04-01 12:15
PROVIDERS: Physician Assistant
DX: N39.0 Urinary tract infection, site not specified (principal)
CPT/HCPCS: 81001; 87077; 87086; 87186

== ENCOUNTER 2023-04-14 01:31 | Day surgery (SDC) | payer MEDICARE, BC | END 2023-04-14 22:45 | disposition home or self-care (01) | LOC: WOUND 01:31 | DX: L89.314 Pressure ulcer of right buttock, stage 4 (principal); L89.323 Pressure ulcer of left buttock, stage 3; S31.809S Unspecified open wound of unspecified buttock, sequela; S31.30XS Unspecified open wound of scrotum and testes, sequela; S71.102S Unspecified open wound, left thigh, sequela; G82.21 Paraplegia, complete; N39.46 Mixed incontinence; L24.89 Irritant contact dermatitis due to other agents; Z99.3 Dependence on wheelchair | CPT/HCPCS: G0463 ==

== ENCOUNTER 2023-06-21 13:39 | Day surgery (SDC) | payer OTHER, MEDICARE, BC ==
[~2023-06-21 13:39] MED LIST changes: +Atropine Sulfate 0.1 MG/ML 10ML SYR ONE; +Glycopyrrolate 0.2 MG/ML 1MLVIAL ONE; +Lactated Ringer's 1,000 ML IV ONE; +Lidocaine 2% 5 ML SDV ONE; +Lidocaine HCl/Pf 1% 5 ML VIAL ONE; +Methylene Blue 1% 100 MG/10 ML VIAL ONE; +Ondansetron HCl 2 MG / ML 2ML Vial ONE; +ePHEDrine Sulfate 50 MG/ML 1ML Injection ONE
[2023-06-21] MEDS ORDERED: METO25ER (15:21)
[2023-06-21] MEDS ORDERED: ERGO400 (15:21)
[2023-06-21] MEDS ORDERED: Lactated Ringer's 1,000 ML IV ONE (15:30)
[2023-06-21] MEDS ORDERED: propofoL 50 ML IV ONE (15:41)
[2023-06-21] MEDS ORDERED: Glycopyrrolate 0.2 MG/ML 1MLVIAL ONE (15:53)
--- NOTE | 2023-06-21 15:56 | NUR ---
06/21/23 1556 Vanessa Styles PT WITH MULTIPLE DECUBITIS ULCERS COVERING BILAT BUTTOCK AND COCCYX AREA NOTED IN PREOP AND NOTED BY MD VILLANUEVA IN ENDO ROOM.
[2023-06-21 16:59] VITALS: BP 158/100
== END 2023-06-21 17:21 | disposition home or self-care (01) ==
LOC: ORSCSDS 13:39
PROVIDERS: Internal Medicine Gastroenterology
PROC: 0DBK8ZX Excision of Ascending Colon, Via Natural or Artificial Opening Endoscopic, Diagnostic (ICD-10-PCS; principal; 2023-06-21 15:00)
PROC: 0DBH8ZX Excision of Cecum, Via Natural or Artificial Opening Endoscopic, Diagnostic (ICD-10-PCS; principal; 2023-06-21 15:00)
PROC: 0DBL8ZX Excision of Transverse Colon, Via Natural or Artificial Opening Endoscopic, Diagnostic (ICD-10-PCS; principal; 2023-06-21 15:00)
DX: K59.00 Constipation, unspecified (principal); Z86.010 Personal history of colon polyps; D12.2 Benign neoplasm of ascending colon; D12.3 Benign neoplasm of transverse colon; D12.0 Benign neoplasm of cecum; G82.21 Paraplegia, complete; V49.9XXS Car occupant (driver) (passenger) injured in unspecified traffic accident, sequela; I10 Essential (primary) hypertension; G47.33 Obstructive sleep apnea (adult) (pediatric); Z79.899 Other long term (current) drug therapy; E66.01 Morbid (severe) obesity due to excess calories
CPT/HCPCS: 88305; J0461; J2001; J2405; J2704; J7120; Q9968

== ENCOUNTER 2023-06-30 02:47 | Day surgery (SDC) | payer MEDICARE, BC ==
[~2023-06-30 02:47] MED LIST changes: -Atropine Sulfate 0.1 MG/ML 10ML SYR ONE; +ERGO400; -Glycopyrrolate 0.2 MG/ML 1MLVIAL ONE; -Lactated Ringer's 1,000 ML IV ONE; -Lidocaine 2% 5 ML SDV ONE; -Lidocaine HCl/Pf 1% 5 ML VIAL ONE; +METO25ER; -Methylene Blue 1% 100 MG/10 ML VIAL ONE; -Ondansetron HCl 2 MG / ML 2ML Vial ONE; -ePHEDrine Sulfate 50 MG/ML 1ML Injection ONE
== END 2023-06-30 22:44 | disposition home or self-care (01) ==
LOC: WOUND 02:47
DX: L89.314 Pressure ulcer of right buttock, stage 4 (principal); L89.323 Pressure ulcer of left buttock, stage 3; S31.809S Unspecified open wound of unspecified buttock, sequela; S31.30XS Unspecified open wound of scrotum and testes, sequela; S71.102S Unspecified open wound, left thigh, sequela; X58.XXXS Exposure to other specified factors, sequela; G82.21 Paraplegia, complete; N39.46 Mixed incontinence; L24.89 Irritant contact dermatitis due to other agents; Z68.38 Body mass index [BMI] 38.0-38.9, adult; Z99.3 Dependence on wheelchair
CPT/HCPCS: G0463

== ENCOUNTER 2023-08-31 03:20 | Day surgery (SDC) | payer MEDICARE, BC | END 2023-08-31 23:02 | disposition home or self-care (01) | LOC: WOUND 03:20 | DX: L89.314 Pressure ulcer of right buttock, stage 4 (principal); L89.893 Pressure ulcer of other site, stage 3; L89.323 Pressure ulcer of left buttock, stage 3; G82.21 Paraplegia, complete; Z68.38 Body mass index [BMI] 38.0-38.9, adult; N39.46 Mixed incontinence; L24.89 Irritant contact dermatitis due to other agents; Z99.3 Dependence on wheelchair; S31.809S Unspecified open wound of unspecified buttock, sequela; S31.30XS Unspecified open wound of scrotum and testes, sequela; S71.102S Unspecified open wound, left thigh, sequela; X58.XXXS Exposure to other specified factors, sequela | CPT/HCPCS: G0463 ==

== ENCOUNTER 2023-12-07 04:29 | Day surgery (SDC) | payer MEDICARE, BC | END 2023-12-07 22:54 | disposition home or self-care (01) | LOC: WOUND 04:29 | DX: L89.314 Pressure ulcer of right buttock, stage 4 (principal); L89.323 Pressure ulcer of left buttock, stage 3; G89.21 Chronic pain due to trauma; S31.809S Unspecified open wound of unspecified buttock, sequela; S71.102S Unspecified open wound, left thigh, sequela; S31.30XS Unspecified open wound of scrotum and testes, sequela; L24.89 Irritant contact dermatitis due to other agents; N39.46 Mixed incontinence; Z99.3 Dependence on wheelchair; Z68.38 Body mass index [BMI] 38.0-38.9, adult; X58.XXXS Exposure to other specified factors, sequela | CPT/HCPCS: G0463 ==

== ENCOUNTER 2023-12-29 12:40 | Day surgery (SDC) | payer MEDICARE, BC ==
[~2023-12-29] VITALS: Ht 190.5 cm; Wt 132.3 kg
[~2023-12-29 12:40] MED LIST changes: +1/2 NS 250ml250 ML; +ALLO100 PO; +AMLO5 PO; +ASPIR 8181 M1 PO; +NS 500 ML IV ONE; +Povidone-Iodine 450 DROP/30 ML Solution ONE; +Tetracaine HCl/Pf 0.5% Opth Soln 4 ml ONE; +Triamcinolone Inj Susp 40 MG / ML 1ML Vial ONE
[2023-12-29] MEDS ORDERED: NS 500 ML IV ONE (13:52)
[2023-12-29] MEDS ORDERED: Midazolam HCl 1MG / ML 2ML Vial ONE (14:08)
[2023-12-29] MEDS ORDERED: Lidocaine HCl/Pf 1% 5 ML VIAL XX ONE (14:24)
[2023-12-29] MEDS ORDERED: BSS PLUS/EPINEPHRINE IRRIGATION SOLUTION 500 ML IR ONE (14:24)
[2023-12-29] MEDS ORDERED: Moxifloxacin HCL 0.5 MG/0.1 ML 0.4MLSYR XX ONE (14:24)
[2023-12-29 14:47] VITALS: BP 138/54
== END 2023-12-29 15:10 | disposition home or self-care (01) ==
LOC: ORSCSDS 12:40
PROVIDERS: Ophthalmology
PROC: 08RK3JZ Replacement of Left Lens with Synthetic Substitute, Percutaneous Approach (ICD-10-PCS; principal; 2023-12-29 14:30)
DX: H25.812 Combined forms of age-related cataract, left eye (principal); G47.33 Obstructive sleep apnea (adult) (pediatric); I10 Essential (primary) hypertension; Z79.82 Long term (current) use of aspirin; Z79.899 Other long term (current) drug therapy
CPT/HCPCS: J2003; J2250; J3301; J7040; V2632

== ENCOUNTER 2024-01-05 12:50 | Day surgery (SDC) | payer MEDICARE, BC ==
[~2024-01-05] VITALS: Ht 190.5 cm; Wt 131.9 kg
[~2024-01-05 12:50] MED LIST changes: +Balanced Salt Epinephrine Irrigation Solution 500 mL IR SCH; +Lidocaine HCl/Pf 1% 5 ML VIAL XX SCH; +Moxifloxacin HCL 0.5 MG/0.1 ML 0.4MLSYR RIGHTEYE SCH; -NS 500 ML IV ONE; +PHENYLEPHRINE\\TROPICAMIDE\\TETRACAINE OPHTHALMIC DILATING SOLN RIGHTEYE PRN; -Povidone-Iodine 450 DROP/30 ML Solution ONE; +Povidone-Iodine 450 DROP/30 ML Solution RIGHTEYE SCH; -Tetracaine HCl/Pf 0.5% Opth Soln 4 ml ONE; +Triamcinolone Inj Susp 40 MG / ML 1ML Vial INJ SCH
[2024-01-05] MEDS ORDERED: Midazolam HCl 1MG / ML 2ML Vial ONE (14:15)
[2024-01-05] MEDS ORDERED: Tetracaine HCl 0.5% Opth Soln 15 ml RIGHTEYE ONE (14:19)
[2024-01-05 14:43] VITALS: BP 148/60
--- NOTE | 2024-01-05 15:13 | NUR ---
01/05/24 1513 Annetta Gautam LIFT USED FOR PT, D/T [place] TO CHAIR. AT SIDE.
== END 2024-01-05 15:10 | disposition home or self-care (01) ==
LOC: ORSCSDS 12:50
PROVIDERS: Ophthalmology
PROC: 08RJ3JZ Replacement of Right Lens with Synthetic Substitute, Percutaneous Approach (ICD-10-PCS; principal; 2024-01-05 14:30)
DX: H25.811 Combined forms of age-related cataract, right eye (principal); Z96.1 Presence of intraocular lens; I10 Essential (primary) hypertension; G47.33 Obstructive sleep apnea (adult) (pediatric); Z79.899 Other long term (current) drug therapy; Z79.82 Long term (current) use of aspirin; G82.20 Paraplegia, unspecified; Z87.891 Personal history of nicotine dependence
CPT/HCPCS: J2250; J3301; V2632

== ENCOUNTER 2024-01-11 05:00 | Day surgery (SDC) | payer MEDICARE, BC ==
[~2024-01-11 05:00] MED LIST changes: -Balanced Salt Epinephrine Irrigation Solution 500 mL IR SCH; -Lidocaine HCl/Pf 1% 5 ML VIAL XX SCH; -Moxifloxacin HCL 0.5 MG/0.1 ML 0.4MLSYR RIGHTEYE SCH; -PHENYLEPHRINE\\TROPICAMIDE\\TETRACAINE OPHTHALMIC DILATING SOLN RIGHTEYE PRN; -Povidone-Iodine 450 DROP/30 ML Solution RIGHTEYE SCH; -Triamcinolone Inj Susp 40 MG / ML 1ML Vial INJ SCH; -Triamcinolone Inj Susp 40 MG / ML 1ML Vial ONE
== END 2024-01-11 23:00 | disposition home or self-care (01) ==
LOC: WOUND 05:00
DX: L89.314 Pressure ulcer of right buttock, stage 4 (principal); L89.893 Pressure ulcer of other site, stage 3; G82.21 Paraplegia, complete; N39.46 Mixed incontinence; Z99.3 Dependence on wheelchair
CPT/HCPCS: G0463

== ENCOUNTER 2024-02-15 05:39 | Day surgery (SDC) | payer MEDICARE, BC | END 2024-02-15 23:00 | disposition home or self-care (01) | LOC: WOUND 05:39 | DX: L89.314 Pressure ulcer of right buttock, stage 4 (principal); L89.893 Pressure ulcer of other site, stage 3; G82.21 Paraplegia, complete; N39.46 Mixed incontinence; Z99.3 Dependence on wheelchair | CPT/HCPCS: G0463 ==

== ENCOUNTER 2024-03-27 17:48 | Emergency (ER) | payer MEDICARE, BC ==
[~2024-03-27] VITALS: Ht 190.5 cm; Wt 129.7 kg
[2024-03-27 18:39] VITALS: BP 154/66
== END 2024-03-27 21:38 | disposition home or self-care (01) ==
LOC: ER 17:48
DX: T83.090A Other mechanical complication of cystostomy catheter, initial encounter (principal); G82.20 Paraplegia, unspecified; Z88.1 Allergy status to other antibiotic agents; Z79.899 Other long term (current) drug therapy; Z59.89 Other problems related to housing and economic circumstances; N20.2 Calculus of kidney with calculus of ureter
CPT/HCPCS: 51798; 76770; 99283-25

== ENCOUNTER 2024-04-04 06:13 | Day surgery (SDC) | payer MEDICARE, BC | END 2024-04-04 23:00 | disposition home or self-care (01) | LOC: WOUND 06:13 | DX: L89.314 Pressure ulcer of right buttock, stage 4 (principal); L89.893 Pressure ulcer of other site, stage 3; L89.323 Pressure ulcer of left buttock, stage 3; N39.46 Mixed incontinence; L24.89 Irritant contact dermatitis due to other agents; Z99.3 Dependence on wheelchair; S71.102S Unspecified open wound, left thigh, sequela; S31.30XS Unspecified open wound of scrotum and testes, sequela; S31.809S Unspecified open wound of unspecified buttock, sequela; X58.XXXS Exposure to other specified factors, sequela | CPT/HCPCS: G0463 ==

== ENCOUNTER 2024-04-20 10:25 | Emergency (ER) | payer MEDICARE, BC ==
[~2024-04-20] VITALS: Ht 190.5 cm; Wt 129.7 kg
[2024-04-20 11:10] LABS: BASOPHILS ABSOLUTE AUTO 0.06 K/mm3 (0.00-0.23); BASOPHILS PERCENT AUTO 1 % (0-2); EOSINOPHILS ABSOLUTE AUTO 0.51 K/mm3 (0.00-0.68); EOSINOPHILS PERCENT AUTO 5 % (0-6); Hematocrit 36.9 % (37.0-53.0); Hemoglobin 11.2 g/dL (13.5-17.5); IMMATURE GRAN ABSOLUTE AUTO 0.03 K/mm3 (0.00-0.10); IMMATURE GRAN PERCENT AUTO 0 % (0-1); LYMPHOCYTES ABSOLUTE AUTO 1.62 K/mm3 (0.84-5.20); LYMPHOCYTES PERCENT AUTO 16 % (21-46); MONOCYTES ABSOLUTE AUTO 0.85 K/mm3 (0.16-1.47); MONOCYTES PERCENT AUTO 8 % (4-13); Mean Corpuscular HGB 22.1 pg (26.0-34.0); Mean Corpuscular HGB Conc 30.4 g/dL (31.5-36.5); Mean Corpuscular Volume 73 fL (80-100); Mean Platelet Volume 9.4 fL (9.1-12.4); NEUTROPHILS ABSOLUTE AUTO 7.12 K/mm3 (1.96-9.15); NEUTROPHILS PERCENT AUTO 70 % (41-73); Platelet Count 272 K/mm3 (150-400); RDW Coefficient Variation 20.8 % (11.7-14.2); RDW Standard Deviation 53.2 fL (35.1-46.3); Red Blood Cell Count 5.06 M/mm3 (4.30-5.90); White Blood Cell Count 10.19 K/mm3 (4.00-11.30)
[2024-04-20 11:43] LABS: Albumin, Blood 3.1 g/dL (3.4-5.0); Albumin/Globulin Ratio 0.7 (0.8-1.8); Bilirubin, Total 0.5 mg/dL (0.1-1.0); Bun/Creatinine Ratio 22.9 (12.0-20.0); Creatinine, Blood 0.96 mg/dL (0.60-1.20); Globulin, Blood 4.7 g/dL (2.2-4.0); Potassium, Blood 3.7 mmol/L (3.5-5.5); Total Protein, Blood 7.8 g/dL (6.4-8.2)
[2024-04-20 12:23] VITALS: BP 179/87
== END 2024-04-20 12:26 | disposition home or self-care (01) ==
LOC: ER 10:25
PROVIDERS: Physician Assistant
DX: L89.893 Pressure ulcer of other site, stage 3 (principal); Z86.69 Personal history of other diseases of the nervous system and sense organs; Z88.1 Allergy status to other antibiotic agents; Z79.899 Other long term (current) drug therapy
CPT/HCPCS: 73630; 80053; 85025; 99284-25

== ENCOUNTER 2024-04-26 01:35 | Day surgery (SDC) | payer MEDICARE, BC | END 2024-04-26 23:00 | disposition home or self-care (01) | LOC: WOUND 01:35 | DX: L89.893 Pressure ulcer of other site, stage 3 (principal); L89.314 Pressure ulcer of right buttock, stage 4; S31.31XD Laceration without foreign body of scrotum and testes, subsequent encounter; X58.XXXD Exposure to other specified factors, subsequent encounter; G82.21 Paraplegia, complete; N39.46 Mixed incontinence; Z99.3 Dependence on wheelchair ==

== ENCOUNTER 2024-05-30 01:41 | Day surgery (SDC) | payer MEDICARE, BC | END 2024-05-30 23:00 | disposition home or self-care (01) | LOC: WOUND 01:41 | DX: L89.314 Pressure ulcer of right buttock, stage 4 (principal); L89.893 Pressure ulcer of other site, stage 3; N39.46 Mixed incontinence; L24.89 Irritant contact dermatitis due to other agents; I73.9 Peripheral vascular disease, unspecified; S31.809S Unspecified open wound of unspecified buttock, sequela; S91.301D Unspecified open wound, right foot, subsequent encounter; Z99.3 Dependence on wheelchair; S91.101A Unspecified open wound of right great toe without damage to nail, initial encounter; R93.6 Abnormal findings on diagnostic imaging of limbs | CPT/HCPCS: 73630; G0463 ==

== ENCOUNTER 2024-06-27 05:30 | Day surgery (SDC) | payer MEDICARE, BC ==
[2024-06-27] MEDS ORDERED: Miconazole Nitrate 28 GM CREAM..G. TOP ONE (13:47)
== END 2024-06-27 23:00 | disposition home or self-care (01) ==
LOC: WOUND 05:30
DX: L89.314 Pressure ulcer of right buttock, stage 4 (principal); S31.30XA Unspecified open wound of scrotum and testes, initial encounter; L89.893 Pressure ulcer of other site, stage 3; S91.301A Unspecified open wound, right foot, initial encounter; S71.102A Unspecified open wound, left thigh, initial encounter; L24.89 Irritant contact dermatitis due to other agents; I73.9 Peripheral vascular disease, unspecified; G82.21 Paraplegia, complete; N39.46 Mixed incontinence; Z99.3 Dependence on wheelchair; X58.XXXA Exposure to other specified factors, initial encounter
CPT/HCPCS: A9270; G0463

== ENCOUNTER → 2024-07-13 | Outpatient (CLI) | payer MEDICARE, BC ==
[2024-07-13 15:52] LABS: Microalb/Creat Ratio UR, Rand 74.583 mg/g (0.000-30.000); Microalbumin, Random Urine 89.5 mg/L (0.000-20.000)
[2024-07-14 11:00] LABS: Stool Occult Bld Immuno 1 Positive (NEGATIVE)
== END ==
LOC: LAB 12:00 → LAB SHORT 12:00
PROVIDERS: Family Medicine
DX: I10 Essential (primary) hypertension (principal); D64.9 Anemia, unspecified
CPT/HCPCS: 82043; 82570; G0328

== ENCOUNTER 2024-09-05 01:58 | Day surgery (SDC) | payer MEDICARE, BC | END 2024-09-05 23:00 | disposition home or self-care (01) | LOC: WOUND 01:58 | DX: L89.314 Pressure ulcer of right buttock, stage 4 (principal); S31.821A Laceration without foreign body of left buttock, initial encounter; G82.21 Paraplegia, complete; N39.46 Mixed incontinence; L24.89 Irritant contact dermatitis due to other agents; Z88.1 Allergy status to other antibiotic agents; Z99.3 Dependence on wheelchair; X58.XXXA Exposure to other specified factors, initial encounter | CPT/HCPCS: G0463 ==

== ENCOUNTER → 2024-10-09 | Day surgery (SDC) | payer MEDICARE, BC ==
[~2024-10-09] MED LIST changes: +Miconazole Nitrate 28 GM CREAM..G. TOP ONE
== END ==
LOC: WOUND 04:28
DX: L89.314 Pressure ulcer of right buttock, stage 4 (principal); S31.82 Open wound of left buttock; G82.21 Paraplegia, complete; I73.9 Peripheral vascular disease, unspecified; N39.46 Mixed incontinence; L24.89 Irritant contact dermatitis due to other agents; Z99.3 Dependence on wheelchair
CPT/HCPCS: A9270; G0463

== ENCOUNTER 2024-11-07 03:18 | Day surgery (SDC) | payer MEDICARE, BC ==
[~2024-11-07 03:18] MED LIST changes: -Miconazole Nitrate 28 GM CREAM..G. TOP ONE
[2024-11-07] MEDS ORDERED: Miconazole Nitrate 28 GM CREAM..G. TOP ONE (13:09)
== END 2024-11-07 23:00 | disposition home or self-care (01) ==
LOC: WOUND 03:18
DX: L89.314 Pressure ulcer of right buttock, stage 4 (principal); S31.821D Laceration without foreign body of left buttock, subsequent encounter; X58.XXXD Exposure to other specified factors, subsequent encounter; G82.21 Paraplegia, complete; I73.9 Peripheral vascular disease, unspecified; N39.46 Mixed incontinence; Z99.3 Dependence on wheelchair
CPT/HCPCS: A9270; G0463

== ENCOUNTER 2024-12-12 00:17 | Day surgery (SDC) | payer MEDICARE, BC ==
[2024-12-12] MEDS ORDERED: Miconazole Nitrate 28 GM CREAM..G. TOP ONE (13:03)
== END 2024-12-12 23:00 | disposition home or self-care (01) ==
LOC: WOUND 00:17
DX: L89.314 Pressure ulcer of right buttock, stage 4 (principal); S31.821D Laceration without foreign body of left buttock, subsequent encounter; X58.XXXD Exposure to other specified factors, subsequent encounter; G82.21 Paraplegia, complete; I73.9 Peripheral vascular disease, unspecified; N39.46 Mixed incontinence; Z99.3 Dependence on wheelchair
CPT/HCPCS: A9270; G0463

== ENCOUNTER 2025-02-13 01:23 | Day surgery (SDC) | payer MEDICARE, BC | END 2025-02-13 23:51 | disposition home or self-care (01) | LOC: WOUND 01:23 | DX: L89.314 Pressure ulcer of right buttock, stage 4 (principal); L89.320 Pressure ulcer of left buttock, unstageable; S31.821D Laceration without foreign body of left buttock, subsequent encounter; X58.XXXD Exposure to other specified factors, subsequent encounter; G82.21 Paraplegia, complete; I73.9 Peripheral vascular disease, unspecified; N39.46 Mixed incontinence; Z99.3 Dependence on wheelchair | CPT/HCPCS: A6213; G0463 ==